=== PATIENT | male | born 1985 | race Caucasian/White ===

== ENCOUNTER 2022-05-22 09:52 | Emergency (ER) | payer OTHER, SELFPAY ==
--- NOTE | ~2022-05-22 | CT_ITS ---
EXAMINATION: CT HEAD WITHOUT CONTRAST CLINICAL INFORMATION: Head injury with pain COMPARISON: August 17, 2017 TECHNIQUE: Contiguous axial imaging was performed from the skull base to vertex without intravenous administration of contrast. This CT examination was performed using dose optimization techniques as appropriate, variously including the following: *Automated exposure control *Adjustment of mA and/or kV according to patient size (this includes techniques or standardized protocols for targeted exams where dose is matched to indication/reason for exam; i.e. extremities or head) *Use of iterative reconstruction technique DLP: 675 mGy-cm FINDINGS: No intracranial hemorrhage is identified. No abnormal extra-axial fluid collection is seen. No significant mass effect or midline structure shift the ventricles, sulci, and cisterns appear unremarkable. Toney-white matter interface is maintained. Paranasal sinuses and mastoid air cells are well aerated. Temporomandibular joints unremarkable. The superior aspects of the pterygoid plates are intact. CT/CT head/brain wo IV con IMPRESSION: No acute intracranial pathology.
[2022-05-22 10:01] VITALS: BP 135/81; PULSE 89; RESP 18; TEMP 36.6; O2SAT 98; BMI 29.6
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
[2022-05-22 12:28] VITALS: BP 109/59; PULSE 69; RESP 18; TEMP 36.7; O2SAT 97
== END 2022-05-22 12:58 | disposition home or self-care (01) ==
PROVIDERS: Emergency Provider Emergency Medicine Emergency Medical Services
DX: S09.90XA Unspecified injury of head, initial encounter (principal); Y00.XXXA Assault by blunt object, initial encounter; Y93.89 Activity, other specified; Y92.511 Restaurant or cafe as the place of occurrence of the external cause; Y99.9 Unspecified external cause status
CPT/HCPCS: 70450; 99283; 99284